=== PATIENT | male | born 1960 | race Caucasian/White ===

== ENCOUNTER 2024-10-14 19:56 | Emergency (ER) | payer BC, SELFPAY ==
--- NOTE | 2024-10-14 19:45 | RT.EKG_ITS ---
APPROVED REPORT Exam: Resting ECG Reason for Exam: dizziness Patient Location: E HR:98 bpm ECG Measurements Heart Rate 98 AXIS SD 178 P 44 QRSd 80 QRS 21 QT 322 T 15 QTc 412 Conclusion Sinus rhythm. 98 normal axis no stemi
[2024-10-14 20:01] VITALS: BP 100/61; PULSE 101; RESP 18; TEMP 36.5; O2SAT 95
--- NOTE | 2024-10-14 20:08 | ED.GENADUL_ITS ---
Discharge Plan Disposition Patient Disposition: Home Discharge Details Clinical Impression: Pre-syncope, Alcohol intoxication, Acute hyperglycemia, Abscess, dental Primary Care Provider: None,None ED Provider: Sugey Foster Home Meds and New Rx's Prescriptions: New amoxicillin-pot clavulanate 875-125 mg tablet 1 tab PO BID 6 Days Qty: 12 0RF No Action lisinopril-hydrochlorothiazide 1 EACH tablet 1 ea PO DAILY Qty: 90 atorvastatin [Lipitor] 40 MG tablet 0.5 tab PO DAILY Qty: 90 fluocinonide 60 GM ointment 1 gm Topical BID PRN Qty: 1 aspirin [Aspir-81] 81 MG tablet,delayed release (DR/EC) 81 mg PO DAILY Discharge Instructions Additional Instructions: * Please avoid drinking to excess and not eating. With your diabetes, it is important that you eat regular meals * Check your blood sugar regularly * First doses of antibiotics have been given for your dental infection. Please follow-up with the dentist on Friday HPI General Date/Time Provider Initiated Documentation: 10/14/24 20:06 . Limitations to Documentation: no limitations . Information obtained by: patient and EMS . HPI Narrative: 63-year-old gentleman with past medical history of diabetes, hypertension presents for evaluation of near syncope. 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 He states that he felt weak and dizz, and became flushed and sweaty. No nausea or vomiting. Ligation. He was able to finish the song and sat down but he said the people around him were concerned about his appearance so they called 911. Reports this lasted for few minutes and now he feels a lot better. No interventions provided by EMS. They do report that he is hyperglycemic. He states he does take metformin for diabetes, no insulin. Reports that for the last few days he has been having a dental abscess this has been bothering him and causing him to not feel very well Related Data Home Medications ?Medication ?Instructions ?Recorded ?Confirmed aspirin 81 mg tablet,delayed 81 mg PO DAILY 06/26/12 0 10/14/24 release (Aspir-) lisinopril 20 1 ea PO DAILY #90 tab-caps 0 09/03/13 10/14/24 mg-hydrochlorothiazide 25 mg tablet atorvastatin 40 mg tablet (Lipitor) 0.5 tab PO DAILY # 90 tabs 01/11/14 10/14/24 fluocinonide 0.05 % topical 1 gm topical BID PRN ##1 0 01/11/14 10/14/24 ointment amoxicillin 875 mg-potassium 1 tab PO BID 6 days #12 t abs 10/14/24 clavulanate 125 mg tablet Previous Rx's ?Medication ?Instructions ?Recorded amoxicillin 875 mg-potassium 1 tab PO BID 6 days #12 t abs 10/14/24 clavulanate 125 mg tablet Allergies Allergy/AdvReac Type Severity Reaction Status Date / Time No Known Allergies Allergy Unverified 10/14/24 20:19 General Stated Complaint: [id number] MAEVE: 3 Exam Narrative Exam Narrative: Review of Systems: All systems reviewed & are unremarkable except as noted in HPI and below Well-developed, no acute distress NCAT Dental abscess over tooth 11, actively draining but tender along the gingiva no significant facial swelling RRR no murmur Hypotension Unlabored respiratory effort, clear bilaterally Nondistended abdomen , soft nontender Extremities w/o deformity, no cyanosis, no edema no focal neurologic deficits Appropriate mood and affect Course Vital Signs Vital signs: Vital Signs Temperature 36.5 C 10/14/24 20:01 Pulse 101 H 10/14/24 20:01 Respiratory Rate 18 10/14/24 20:01 Blood Pressure 100/61 10/14/24 20:01 Pulse Oximetry 95 10/14/24 20:01 Temperature 36.5 C 10/14/24 20:01 Pulse 101 H 10/14/24 20:01 Respiratory Rate 18 10/14/24 20:01 Blood Pressure 100/61 10/14/24 20:01 Pulse Oximetry 95 10/14/24 20:01 Pain Level 0 10/14/24 20:01 Medical Decision Making Emergent evaluation of presyncopal symptoms. Patient reports improvement in his overall symptoms at this time. He is noted to have slightly low blood pressure. EKG was obtained and independently interpreted: Sinus 98 normal axis no acute ischemic changes, no priors for comparison. He is suffering from an odontogenic abscess for the last few days this may Be contributing to his hyperglycemia. Will help evaluate for DKA, electrolyte derangement, ACS. Will continue telemetry monitoring and give some IV fluids for blood pressure control. Lab work reviewed, no leukocytosis or anemia, there are some derangements in his electrolytes that seem consistent with alcoholic ketosis and not necessarily hyperglycemia and DKA. Patient was resuscitated with 2 L of IV fluids and had resolution of all of his symptoms. He was able to eat food. The patient did not want any further workup or hospitalization and was ready to go home. He was given first dose of antibiotic to treat his odontogenic infection. He was also provided with tomorrow's doses as well since the pharmacy is likely to be closed. Remaining doses were sent to the pharmacy. Patient was encouraged to eat food before drinking alcohol. Return to ED as needed. PFSH All Active Problems (Updated 10/14/24 @ 21:43 by Sugey Foster MD) Abscess, dental (Acute) Acute hyperglycemia (Acute) Alcohol intoxication (Acute) Pre-syncope (Acute) Surgical History (Updated 01/28/18 @ 14:35 by [facility] [place]) Tonsillectomy and adenoidectomy Colonoscopy - IV Sedation (06/26/12) DR. GENIE WHITLEY; TUBULAR ADENOMA x 3 Social History (System 01/12/18 @ 12:40 by Adeola Suazo) Smoking/Tobacco Use Status: Former Tobacco Use Smoking risk assessment performed?: Yes Drug use: Never
[2024-10-14] MEDS: Normal Saline 1,000 ML 1000 ML IV ×2 (20:20→20:56)
[2024-10-14 20:21] LABS: Abs Immature Grans 0.03 10^3/uL (0.0-0.06); BE (Venous) -9 mmol/L (-2-3); HCO3 (Venous) 18 mmol/L (23-28); HCT 40.0 % (40.0-50.0); HGB 13.9 g/dL (13.5-17.5); Immature Grans % 0.3 %; MCH 31.0 pg (27.0-33.0); MCHC 34.8 % (32.0-36.0); MCV 89 fL (80-95); MPV 10.1 fL (8.0-11.0); O2 Sat (Venous) 79 %; Platelet Count 245 10^3/uL (130-400); RBC 4.48 10^6/uL (4.36-5.78); RDW 11.9 % (11.8-14.1); RDW-SD 38.6 fL; TCO2 (Venous) 17 mmol/L (24-29); WBC 8.97 10^3/uL (4.4-10.8); pCO2 (Venous) 39 mmHg (41-51); pO2 (Venous) 50 mmHg
[2024-10-14] MEDS: Ondansetron 4 MG/2 ML VIAL IVP (20:21)
[2024-10-14 20:39] LABS: INR 1.0 (0.9-1.1); Prothrombin Time 9.9 sec (9.1-11.1)
[2024-10-14 20:41] LABS: ALT 33 U/L (16-63); AST 16 U/L (15-37); Albumin 3.6 g/dL (3.4-5.0); Alkaline Phosphatase 66 U/L (46-116); Anion Gap 16.8 mmol/L (3-11); BUN 32 mg/dL (7-18); Bilirubin, Total 0.4 mg/dL (0.2-1.0); CO2 19.2 mmol/L (21.0-32.0); Calcium 9.2 mg/dL (8.5-10.1); Chloride 96 mmol/L (98-107); Estimated GFR 47.82 (mL/min/1.73m2); Glucose 306 mg/dL (74-106); Magnesium 1.8 mg/dL (1.8-2.4); Potassium 3.9 mmol/L (3.5-5.1); Sodium 132 mmol/L (136-145); Total Protein 7.7 g/dL (6.4-8.2); Troponin I 4 ng/L (<or=76)
[2024-10-14 21:27] LABS: Troponin I 5 ng/L (<or=76)
[2024-10-14] MEDS: Amox. 875/Clav. 125, 2 TABS/BTL 1 TAB PO (21:57)
[2024-10-14] MEDS: Amoxicillin 875/Clav. 125 TAB PO (21:57)
== END 2024-10-14 21:59 | disposition home or self-care (01) ==
PROVIDERS: Emergency Provider Emergency Medicine
DX: R55 Syncope and collapse (principal); F10.120 Alcohol abuse with intoxication, uncomplicated; E11.65 Type 2 diabetes mellitus with hyperglycemia; K04.7 Periapical abscess without sinus; I10 Essential (primary) hypertension; Z79.84 Long term (current) use of oral hypoglycemic drugs; Z79.82 Long term (current) use of aspirin; Z87.891 Personal history of nicotine dependence
CPT/HCPCS: 80053; 82805; 82962; 93005; 96361; 96374; 99284; 80320; 83735; 84484; 85025; 85610; 93010; J2405